=== PATIENT | female | born 1970 | race Caucasian/White ===

== ENCOUNTER 2017-05-07 15:04 | Emergency (ER) | payer MEDICAID, OTHER ==
[2017-05-07 15:04] VITALS: BMI 32.1
[2017-05-07 15:10] VITALS: BP 138/81; PULSE 84
--- NOTE | 2017-05-07 15:28 | C.PDOC ---
History Of Present Illness 46 y/o female presents to ED for evaluation on left big toe pain and swelling developed 3-4 days ago. Patient states she noted discharge from small wound by nail area. Otherwise, pt denies known recent trauma, injury, weakness, sensory or vascular deficits to Right foot. Ambulate to Ed for evaluation, not in any apparent distress. Time Seen by Provider: 05/07/17 15:13 Chief Complaint (Nursing): Lower Extremity Problem/Injury History Per: Patient History/Exam Limitations: no limitations Onset/Duration Of Symptoms: Days Current Symptoms Are (Timing): Still Present Past Medical History Reviewed: Historical Data, Nursing Documentation, Vital Signs Vital Signs: Last Vital Signs Temp 98 F 05/07/17 15:43 Pulse 84 05/07/17 15:43 Resp 18 05/07/17 15:43 BP 138/81 05/07/17 15:43 Pulse Ox 99 05/07/17 15:48 - Medical History PMH: Arthritis, Rheumatoid Arthritis Surgical History: Cholecystectomy Family History: States: Unknown Family Hx - Social History Hx Alcohol Use: No Hx Substance Use: No - Immunization History Hx Tetanus Toxoid Vaccination: No Hx Influenza Vaccination: No Hx Pneumococcal Vaccination: No Review Of Systems Except As Marked, All Systems Reviewed And Found Negative. Constitutional: Negative for: Fever, Weakness Musculoskeletal: Positive for: Foot Pain Neurological: Negative for: Numbness Physical Exam - Physical Exam Appears: Well, Non-toxic, No Acute Distress Skin: Normal Color, Warm, No Dry Extremity: Normal ROM, No Tenderness, No Pedal Edema, Capillary Refill (<2 seconds), No Deformity, Other (Left big toe: exam consistent with ingrown toe nail with mild edema, +erythema to medial aspect of nail fold, scant yellow discharge. No flunctuance or proximal streaking) Neurological/Psych: Oriented x3, Normal Motor, Normal Sensation, Normal Reflexes ED Course And Treatment O2 Sat by Pulse Oximetry: 99 (RA) Pulse Ox Interpretation: Normal Progress Note: On re-eavl, pt is afebrile, hemodynamicaly stable. Non-toxic. LLE; exam c/w big tow ingrown toenail. No flactulance, no cellulitis. Pt advised and ref. to f/u with electrical prospecting observer in 2-3 days for re-eval. return if any new changes. Disposition Counseled Patient/Family Regarding: Diagnosis, Need For Followup, Rx Given - Disposition Referrals: Podiatry Clinic [Outside] Disposition: HOME/ ROUTINE Disposition Time: 15:30 Condition: STABLE Additional Instructions: WARM SALTY WATER FOOT SOAKS WITH 1 TABLESPOON VINEGAR TAKE MEDICATION PRESCRIBED FOLLOW UP WITH CORPORATE DEVELOPMENT ASSOCIATE IN 2-3 DAYS FOR RE-EVALUATION. RETURN TO ED IF ANY WORSENING OR NEW CHANGES. Prescriptions: Sulfamethoxazole/Trimethoprim [Bactrim DS 800 mg-160 mg] 1 tab PO BID #14 tab Instructions: Ingrown Nail (ED) Print Language: SOUTH SUDANESE - Clinical Impression Clinical Impression: Ingrown nail - PA / AIR POLLUTION AUDITOR / Resident Statement MD/DO has reviewed & agrees with the documentation as recorded. - Scribe Statement The provider has reviewed the documentation as recorded by the Marquesibjoe Rodríguez All medical record entries made by the Daniel were at my direction and personally dictated by me. I have reviewed the chart and agree that the record accurately reflects my personal performance of the history, physical exam, medical decision making, and the department course for this patient. I have also personally directed, reviewed, and agree with the discharge instructions and disposition.
[2017-05-07] MEDS ORDERED: Tmp-Smz 800 mg-160 mg DS Tab PO STA (15:29)
[2017-05-07] MEDS ORDERED: Tmp-Smz 800 mg-160 mg DS Tab ONE (15:40)
[2017-05-07 15:43] VITALS: RESP 18; TEMP 98
[2017-05-07 15:48] VITALS: O2SAT 99
== END 2017-05-07 15:42 | disposition home or self-care (01) ==
LOC: C.ER 15:04
DX: L60.0 Ingrowing nail (principal)

== ENCOUNTER 2019-01-15 10:39 | Emergency (ER) | payer MEDICAID, OTHER ==
[2019-01-15 10:39] VITALS: BMI 31.8
--- NOTE | 2019-01-15 11:41 | C.PDOC ---
History Of Present Illness 48 year old female presents to ED with complaint of generalized joint pain for the past several months. Patient was seen by her PMD, Dr. Hawley, and was diagnosed with RA. Patient was referred to a final dressing cutter but could only get an appointment for February. Patient states that the pain is getting worse and she decided to come to the ED. Patient denies any numbness or weakness. Time Seen by Provider: 01/15/19 11:17 Chief Complaint (Nursing): Lower Extremity Problem/Injury History Per: Patient History/Exam Limitations: no limitations Onset/Duration Of Symptoms: Other (sveral months) Current Symptoms Are (Timing): Still Present Past Medical History Reviewed: Historical Data, Nursing Documentation, Vital Signs Vital Signs: Last Vital Signs Temp 97.8 F 01/15/19 10:50 Pulse 75 01/15/19 10:50 Resp 20 01/15/19 10:50 BP 121/78 01/15/19 10:50 Pulse Ox 98 01/15/19 10:50 - Medical History PMH: Arthritis, Rheumatoid Arthritis Surgical History: Cholecystectomy Family History: States: Unknown Family Hx - Social History Hx Alcohol Use: No Hx Substance Use: No - Immunization History Hx Tetanus Toxoid Vaccination: No Hx Influenza Vaccination: No Hx Pneumococcal Vaccination: No Review Of Systems Constitutional: Negative for: Fever, Chills, Weakness Cardiovascular: Negative for: Chest Pain, Palpitations Respiratory: Negative for: Cough, Shortness of Breath Gastrointestinal: Negative for: Nausea, Vomiting, Abdominal Pain Musculoskeletal: Positive for: Other (generalized joint pain) Skin: Negative for: Rash Neurological: Negative for: Weakness, Numbness, Dizziness Physical Exam - Physical Exam Appears: Non-toxic Skin: Normal Color, Warm, Dry Head: Atraumatic, Normacephalic Neck: Normal ROM, Supple Chest: Symmetrical, No Deformity Respiratory: No Rales, No Rhonchi, No Wheezing Gastrointestinal/Abdominal: Soft, No Tenderness Extremity: Tenderness (right knee, no swelling), Swelling (hand bilaterally), No Other (warmth, redness, open wounds) Neurological/Psych: Oriented x3, Normal Speech, Normal Cognition ED Course And Treatment O2 Sat by Pulse Oximetry: 98 (in RA) Progress Note: Discussed case with Dr. Hawley and patient will return to his office to try to schedule an earlier appointment with the final dressing cutter. Discussed plan with patient who expresses understanding. All questions answered and there is agreement with the plan to discharge home with instructions. Patient stable for discharge. Return if symptoms persist or worsen. Disposition - Disposition Referrals: Flako Hawley MD [Staff Provider] - Disposition: HOME/ ROUTINE Disposition Time: 11:28 Condition: STABLE Additional Instructions: Follow up with within 1-2 days. he will help you to move your Rheumatology appointment to the earlier date. Return to ED if feel worse. Instructions: Rheumatoid Arthritis (DC) Forms: [employer] (Amharic) Print Language: CROATIAN - Clinical Impression Clinical Impression: Arthralgia - PA / SENIOR INFORMATION SECURITY ENGINEER / Resident Statement MD/DO has reviewed & agrees with the documentation as recorded. (Ashley eHrnandez) - Scribe Statement The provider has reviewed the documentation as recorded by the Scribe (Ashley Hernandez) All medical record entries made by the Scribe were at my direction and personally dictated by me. I have reviewed the chart and agree that the record accurately reflects my personal performance of the history, physical exam, medical decision making, and the department course for this patient. I have also personally directed, reviewed, and agree with the discharge instructions and disposition.
[2019-01-15 11:53] VITALS: BP 120/79; PULSE 67; RESP 16; TEMP 97.7
[2019-01-15 13:45] VITALS: O2SAT 98
== END 2019-01-15 11:54 | disposition home or self-care (01) ==
LOC: C.ER 10:39
DX: M25.561 Pain in right knee (principal)